=== PATIENT | male | born 1955 | race Caucasian/White ===

== ENCOUNTER 2022-05-24 11:01 | Day surgery (SDC) | payer OTHER ==
[~2022-05-24] VITALS: Ht 177.8 cm; Wt 100.0 kg
[~2022-05-24 11:01] MED LIST: CEPH500 PO; INSULANPEN; METF500; Norco 5-325 Ta1 EACH PO
[2022-05-24] MEDS ORDERED: INSULANI (12:09)
[2022-05-24] MEDS ORDERED: PIOG30 PO (12:10)
--- NOTE | 2022-05-24 12:17 | NUR ---
05/24/22 1217 Yun Gill CALL LIGHT WITHIN REACH. TETRACAINE AT 1210 IN THE RIGHT EYE AND PLEDGETT AT 1212
== END 2022-05-24 13:35 | disposition home or self-care (01) ==
LOC: ORSCSDS 11:01
PROVIDERS: Ophthalmology
PROC: 08RJ3JZ Replacement of Right Lens with Synthetic Substitute, Percutaneous Approach (ICD-10-PCS; principal; 2022-05-24 12:30)
DX: H25.11 Age-related nuclear cataract, right eye (principal); E11.36 Type 2 diabetes mellitus with diabetic cataract; Z79.4 Long term (current) use of insulin; I10 Essential (primary) hypertension; Z79.899 Other long term (current) drug therapy
CPT/HCPCS: 82947; J2001; J2250; J3010; J3301; J7040; V2632

== ENCOUNTER 2023-10-28 11:04 | Inpatient (IN) | payer OTHER ==
[~2023-10-28] VITALS: Ht 175.3 cm; Wt 97.4 kg
[~2023-10-28 11:04] MED LIST changes: +INSULANI SC; +PIOG30 PO
[2023-10-28 11:33] LABS: BASOPHILS ABSOLUTE AUTO 0.05 K/mm3 (0.00-0.23); BASOPHILS PERCENT AUTO 1 % (0-2); EOSINOPHILS ABSOLUTE AUTO 0.08 K/mm3 (0.00-0.68); EOSINOPHILS PERCENT AUTO 1 % (0-6); Hematocrit 45.1 % (37.0-53.0); Hemoglobin 15.3 g/dL (13.5-17.5); IMMATURE GRAN ABSOLUTE AUTO 0.05 K/mm3 (0.00-0.10); IMMATURE GRAN PERCENT AUTO 1 % (0-1); LYMPHOCYTES ABSOLUTE AUTO 1.59 K/mm3 (0.84-5.20); LYMPHOCYTES PERCENT AUTO 20 % (21-46); MONOCYTES ABSOLUTE AUTO 0.69 K/mm3 (0.16-1.47); MONOCYTES PERCENT AUTO 9 % (4-13); Mean Corpuscular HGB 30.7 pg (26.0-34.0); Mean Corpuscular HGB Conc 33.9 g/dL (31.5-36.5); Mean Corpuscular Volume 91 fL (80-100); Mean Platelet Volume 9.3 fL (9.1-12.4); NEUTROPHILS ABSOLUTE AUTO 5.66 K/mm3 (1.96-9.15); NEUTROPHILS PERCENT AUTO 70 % (41-73); Platelet Count 224 K/mm3 (150-400); RDW Coefficient Variation 13.1 % (11.7-14.2); RDW Standard Deviation 43.2 fL (35.1-46.3); Red Blood Cell Count 4.98 M/mm3 (4.30-5.90); White Blood Cell Count 8.12 K/mm3 (4.00-11.30)
[2023-10-28 11:45] LABS: Albumin, Blood 3.7 g/dL (3.4-5.0); Bilirubin, Total 0.5 mg/dL (0.1-1.0); Bun/Creatinine Ratio 23.5 (12.0-20.0); Calcium, Blood 8.6 mg/dL (8.5-10.1); Creatinine, Blood 0.81 mg/dL (0.60-1.20); Globulin, Blood 3.7 g/dL (2.2-4.0); Total Protein, Blood 7.4 g/dL (6.4-8.2)
[2023-10-28 16:54] VITALS: BP 195/98
[2023-10-28 20:20] VITALS: BP 177/80
[2023-10-29 05:09] VITALS: BP 179/81
[2023-10-29 05:50] LABS: BASOPHILS ABSOLUTE AUTO 0.06 K/mm3 (0.00-0.23); BASOPHILS PERCENT AUTO 1 % (0-2); EOSINOPHILS ABSOLUTE AUTO 0.05 K/mm3 (0.00-0.68); EOSINOPHILS PERCENT AUTO 0 % (0-6); Hematocrit 45.3 % (37.0-53.0); Hemoglobin 15.8 g/dL (13.5-17.5); IMMATURE GRAN ABSOLUTE AUTO 0.07 K/mm3 (0.00-0.10); IMMATURE GRAN PERCENT AUTO 1 % (0-1); LYMPHOCYTES PERCENT AUTO 18 % (21-46); MONOCYTES ABSOLUTE AUTO 0.96 K/mm3 (0.16-1.47); MONOCYTES PERCENT AUTO 9 % (4-13); Mean Corpuscular HGB 31.1 pg (26.0-34.0); Mean Corpuscular HGB Conc 34.9 g/dL (31.5-36.5); Mean Corpuscular Volume 89 fL (80-100); Mean Platelet Volume 9.3 fL (9.1-12.4); NEUTROPHILS ABSOLUTE AUTO 8.18 K/mm3 (1.96-9.15); NEUTROPHILS PERCENT AUTO 72 % (41-73); Platelet Count 265 K/mm3 (150-400); RDW Standard Deviation 42.5 fL (35.1-46.3); Red Blood Cell Count 5.08 M/mm3 (4.30-5.90); White Blood Cell Count 11.32 K/mm3 (4.00-11.30)
--- NOTE | 2023-10-29 05:53 | NUR ---
SUMMARY: PT A/OX4, CALLS APPROPRIATELY TO SPECIFY NEEDS AND IS PLEASANT AND COOPERATIVE W/CARE. HE'S UP W/2PA AND GB W/FWW R/T WEAKNESS POST CVA BUT HE WASN'T UP THIS SHIFT. STRENGTH IS INTACT BILATERALLY TO BUE AND BLE'S. CORNELIA AND EYES TRACK BOTH DIRECTIONS. NO DEFICITS OBSERVED BUT PT REPORTS R.EXT'S FEEL HEAVY. BP REMAINS ELEVATED BUT IS IMPROVING AND NO PRN MEDS REQ'D D/T PERMISSIVE HTN. HE'S NSR ON TELEMETRY AT 80'S-90'S BPM. PT DENIES PAIN AND ALL OTHER COMPLAINTS. VSS/AFEBRILE. WCTM AND REPORT TO DAY RN.
[2023-10-29 06:56] LABS: Alanine Aminotransfer (ALT/SGP 21 U/L (12-78); Albumin, Blood 3.7 g/dL (3.4-5.0); Alk Phos 92 U/L (50-136); Anion Gap 5 mmol/L (6-16); Aspartate Aminotrans (AST/SGOT 18 U/L (12-37); Bilirubin, Total 0.7 mg/dL (0.1-1.0); Blood Urea Nitrogen 17 mg/dL (8-24); Bun/Creatinine Ratio 22.7 (12.0-20.0); CHOL/HDL RATIO 5.6; CO2, Blood 27 mmol/L (21-32); Calcium, Blood 9.2 mg/dL (8.5-10.1); Chloride, Blood 107 mmol/L (98-108); Cholesterol 220 mg/dL (50-200); Creatinine, Blood 0.75 mg/dL (0.60-1.20); Globulin, Blood 3.7 g/dL (2.2-4.0); Glomerular Filtration Rate 97 (60-); Glucose, Blood 157 mg/dL (70-99); HDL Cholesterol 39 mg/dL (>39); LDL/HDL RATIO 4.1; Low Density Lipoprotein Chol 161 mg/dL (0-110); Potassium, Blood 3.8 mmol/L (3.5-5.5); Sodium, Blood 139 mmol/L (136-145); Total Protein, Blood 7.4 g/dL (6.4-8.2); Triglycerides 101 mg/dL (30-160); Very Low Density Lipoprot Chol 20 mg/dL (6-32)
[2023-10-29 07:47] VITALS: BP 188/87
[2023-10-29 15:59] VITALS: BP 165/77
[2023-10-29 20:00] VITALS: BP 162/86
[2023-10-30 03:34] VITALS: BP 133/81
--- NOTE | 2023-10-30 07:01 | NUR ---
SUMMARY: PT A/OX4, CALLS APPROPRIATELY TO SPECIFY NEEDS AND IS PLEASANT AND COOPERATIVE W/CARE. HE HAS GENERALIZED BLE WEAKNESS AND USES FWW OOB BUT NO NEURO DEFECITS OBSERVED. CORNELIA AND PT TRACKS W/EYES. STRENGTH TO BUE/BLE'S ARE EQUAL AND INTACT BUT PT CONT'S TO REPORT R.ARM HEAVINESS THAT'S SLIGHLTY IMPROVED. HE USES URINAL AD DEBRA AND DENIED PAIN/COMPLAINTS. NO ACUTE CHANGES, VSS/AFEBRILE. HE'S NSR ON TELE AT 70'S-80'S BPM. WCTM AND REPORT TO DAY RN.
[2023-10-30 07:42] VITALS: BP 158/92
[2023-10-30] MEDS ORDERED: ATOR80 PO (11:04)
[2023-10-30] MEDS ORDERED: ASPI81CH PO (11:04)
[2023-10-30] MEDS ORDERED: CLOP75 PO (11:04)
[2023-10-30] MEDS ORDERED: LOSA25 PO (11:05)
[2023-10-30] MEDS ORDERED: METO25 PO (11:05)
--- NOTE | 2023-10-30 11:33 | NUR ---
DICHARGE NOTE: DISCHARGE WENT OVER WITH PATIENT AND HIS AT BEDSIDE. IV AND TELEMETRY D/C'D, BELONGINGS COLLECTED, AND PATIENT GOT DRESSED WITH 'S ASSISTANCE. HE AMBULATED WITH THE [facility] TO THE WHEELCHAIR AND WAS WHEELED DOWN TO THE [facility]. WAS ABLE TO TRANSFER FROM WHEELCHAIR TO VEHICLE WITHOUT DIFFICULTY. NO SIGNS OR SYMPTOMS OF DISTRESS.
== END 2023-10-30 11:28 | disposition home health service (06) | DRG 65 ==
LOC: ER 11:04 → MEDS 11:05
PROVIDERS: Emergency Medicine; ADMIT Internal Medicine
DX: I63.512 Cerebral infarction due to unspecified occlusion or stenosis of left middle cerebral artery (principal); G81.91 Hemiplegia, unspecified affecting right dominant side; I16.1 Hypertensive emergency; I10 Essential (primary) hypertension; E78.5 Hyperlipidemia, unspecified; D72.829 Elevated white blood cell count, unspecified; E11.9 Type 2 diabetes mellitus without complications; R29.810 Facial weakness; R00.0 Tachycardia, unspecified; I49.1 Atrial premature depolarization; Z79.4 Long term (current) use of insulin; Z79.899 Other long term (current) drug therapy; Z98.42 Cataract extraction status, left eye; Z98.41 Cataract extraction status, right eye
CPT/HCPCS: 36415; 70450; 70496; 70498; 70551; 80053; 80061; 82947; 84443; 85025; 92610; 93005; 93010; 93306; 94760; 96372; 96374-59; 97110; 97112; 97161; 99285-25; A9270; G0378; J0360; J1650; J1815; Q9967

== ENCOUNTER → 2025-09-08 | Outpatient (CLI) | payer OTHER ==
[~2025-09-08] MED LIST changes: +ASPI81CH PO; +ATOR80 PO; +CLOP75 PO; +LOSA25 PO; +METO25 PO
[2025-09-08 19:40] LABS: BASOPHILS ABSOLUTE AUTO 0.06 K/mm3 (0.00-0.23); BASOPHILS PERCENT AUTO 1 % (0-2); EOSINOPHILS ABSOLUTE AUTO 0.10 K/mm3 (0.00-0.68); EOSINOPHILS PERCENT AUTO 1 % (0-6); Hematocrit 46.3 % (37.0-53.0); Hemoglobin 15.6 g/dL (13.5-17.5); IMMATURE GRAN ABSOLUTE AUTO 0.05 K/mm3 (0.00-0.10); IMMATURE GRAN PERCENT AUTO 1 % (0-1); LYMPHOCYTES ABSOLUTE AUTO 1.75 K/mm3 (0.84-5.20); LYMPHOCYTES PERCENT AUTO 21 % (21-46); MONOCYTES ABSOLUTE AUTO 0.66 K/mm3 (0.16-1.47); MONOCYTES PERCENT AUTO 8 % (4-13); Mean Corpuscular HGB Conc 33.7 g/dL (31.5-36.5); Mean Corpuscular Volume 94 fL (80-100); NEUTROPHILS ABSOLUTE AUTO 5.77 K/mm3 (1.96-9.15); NEUTROPHILS PERCENT AUTO 69 % (41-73); NRBC ABSOLUTE 0.00 K/mm3 (0.00-0.02); NRBC Auto 0.0 /100 WBC (0.0-0.2); Platelet Count 255 K/mm3 (150-400); RDW Coefficient Variation 13.2 % (11.7-14.2); RDW Standard Deviation 45.2 fL (35.1-46.3)
[2025-09-08 20:03] LABS: Alanine Aminotransfer (ALT/SGP 27 U/L (12-78); Albumin, Blood 4.2 g/dL (3.4-5.0); Albumin/Globulin Ratio 1.3 (0.8-1.8); Anion Gap 9 mmol/L (3-11); Aspartate Aminotrans (AST/SGOT 18 U/L (12-37); Bilirubin, Total 0.4 mg/dL (0.1-1.0); Blood Urea Nitrogen 17 mg/dL (8-24); CHOL/HDL RATIO 6.1; CO2, Blood 26 mmol/L (21-32); Calcium, Blood 9.2 mg/dL (8.5-10.1); Chloride, Blood 107 mmol/L (98-108); Cholesterol 213 mg/dL (50-200); Creatinine, Blood 0.81 mg/dL (0.60-1.20); Globulin, Blood 3.2 g/dL (2.2-4.0); Glucose, Blood 95 mg/dL (70-99); HDL Cholesterol 35 mg/dL (>39); LDL/HDL RATIO 4.2; Low Density Lipoprotein Chol 147 mg/dL (0-110); Potassium, Blood 4.0 mmol/L (3.5-5.5); Prostate Specific Antigen 1.440 ng/mL (0.000-4.000); Sodium, Blood 138 mmol/L (136-145); Total Protein, Blood 7.4 g/dL (6.4-8.2); Triglycerides 157 mg/dL (30-160); Very Low Density Lipoprot Chol 31 mg/dL (6-32)
== END ==
LOC: LAB SHORT 19:13 → LAB 19:13
PROVIDERS: Nurse Practitioner Family
DX: I10 Essential (primary) hypertension (principal); E78.5 Hyperlipidemia, unspecified; Z12.5 Encounter for screening for malignant neoplasm of prostate
CPT/HCPCS: 80053; 80061; 85025; G0103